=== PATIENT | male | born 1965 | race Caucasian/White ===

== ENCOUNTER 2016-10-27 04:21 | Emergency (ER) | payer OTHER ==
[2016-10-27] MEDS ORDERED: Ondansetron HCl/PF 4 MG/2 ML Vial ONE (04:49)
[2016-10-27 04:52] LABS: #Basophils 0.1 thou/uL (0.0-0.2); #Eosinphils 0.1 thou/uL (0.0-0.7); #Monocytes 0.7 thou/uL (0.11-0.59); #Neutrophils 7.1 thou/uL (1.40-6.50); %Basophils 0.7 % (0.0-1.0); %Eosinophils 0.7 % (0.0-10.0); %Lymphocytes 19.8 % (21.0-51.0); %Monocytes 6.8 % (0.0-10.0); Hematocrit 49.1 % (42.0-52.0); Mean Platelet Volume 10.4 fL (7.4-10.4); White Blood Cell (WBC) Count 9.9 thou/uL (4.8-10.8)
[2016-10-27 05:12] LABS: ALT (SGPT) 31 U/L (0-55); AST (SGOT) 22 U/L (5-34); Alkaline Phosphatase 70 U/L (40-150); Anion Gap 19 mmol/L (10-20); BUN (Urea Nitrogen) 24 mg/dL (8.9-20.6); Bilirubin, Total 0.8 mg/dL (0.2-1.2); Calc. Creatinine Clearance 0 mL/min (70-130); Calcium 9.6 mg/dL (7.8-10.44); Carbon Dioxide 20 mmol/L (22-29); Chloride 106 mmol/L (98-107); Estimated GFR-MDRD 49; Globulin 2.6 g/dL (2.4-3.5); Lipase 25 U/L (8-78); Protein, Total 7.3 g/dL (6.0-8.3)
[2016-10-27] MEDS ORDERED: niCARdipine 20MG In NaCl 20 MG/200 ML BAG IVPB SCH (06:15)
--- NOTE | 2016-10-27 08:50 | RAD ---
SINGLE VIEW OF THE CHEST: COMPARISON: None. HISTORY: Epigastric and abdominal pain. FINDINGS: Single view of the chest shows a normal sized cardiomediastinal silhouette. There is no evidence of consolidation, mass, or pleural effusion. The bones are unremarkable. IMPRESSION: No evidence of acute cardiopulmonary disease. POS: [facility]
--- NOTE | 2016-10-27 08:56 | CT ---
PRELIMINARY REPORT/[facility]/EMERGENCY AFTER HOURS PROCEDURE: EXAM: CT Abdomen and Pelvis With Intravenous Contrast. CLINICAL HISTORY: The patient is a 51 years male; Pain; Abdominal pain; Epigastric; Additional info: Epigastric pain w ith vomiting TECHNIQUE: Axial computed tomography images of the abdomen and pelvis with intravenous contrast. Coronal and sagittal reformatted images were created and reviewed. CONTRAST: 96 mL of ISOVUE 370 administered intravenously. COMPARISON: No relevant prior studies available. FINDINGS: Lower thorax: No acute findings. ABDOMEN: Liver: Few subcentimeter hepatic hypodensities are noted, too small to characterize further. Gallbladder and bile ducts: No calcified stones. No ductal dilation. Pancreas: Unremarkable. No mass. No ductal dilation. Spleen: Unremarkable. No splenomegaly. Adrenals: Unremarkable. No mass. Kidneys and ureters: 7 mm proximal left ureteral calculus at the level of L4/5 with mild proximal hy droureter though no hydronephrosis or evidence of impaired renal function. The ureter is normal janes kiana distal to the stone. There are otherwise multiple subcentimeter renal calculi bilaterally. Scattered right cortical scarring. The left kidney is slightly low lying. No renal mass. Stomach and bowel: Unremarkable. No obstruction. No mucosal thickening. Appendix: No findings to suggest acute appendicitis. PELVIS: Bladder: Unremarkable. No mass. Reproductive: Unremarkable as visualized. ABDOMEN and PELVIS: Intraperitoneal space: No free fluid or fluid collection. No free air. Bones/joints: No acute fracture. No dislocation. Soft tissues: Unremarkable. Vasculature: Infrarenal abdominal aortic aneurysm extending from the level of the FRANNIE to the distal right common iliac artery, with an apparent associated dissection (versus intramural hematoma). The aorta measures a maximum of 2.9 cm in caliber and the right common iliac artery 2.5 cm. No evidence of leak/retroperitoneal hematoma. Vessels widely patent. Lymph nodes: Unremarkable. No enlarged lymph nodes. IMPRESSION: 1. 7 mm likely partially obstructing proximal left ureteral calculus with mild proximal hydroureter but no hydronephrosis or evidence of impaired renal function. 2. Scattered bilateral nonobstructing renal calculi. 3. Mild infrarenal abdominal aortic aneurysm measuring up to 2.9 cm extending into the right common iliac artery (2.5 cm) with associated dissection. No evidence of leak/retroperitoneal hematoma. Gagan elate clinically and with any available prior exams. 4. Other chronic and incidental findings as above. Findings discussed with and acknowledged by JOSE DANIEL Cedillo at 5:[address] on 10/27/2016 with any ques tions answered. Thank you for allowing us to participate in the care of your patient. Dictated and Authenticated by: Lonny Escalnate MD 10/27/2016 5:55 AM Central Time ([place] \T\ [place]) FINAL REPORT CT ABDOMEN AND PELVIS WITH IV CONTRAST: I agree with the preliminary report given by Dr. Lonny Escalante of [facility]. POS: [facility]
[2016-10-27] MEDS ORDERED: ESMOLOL ONE (09:00)
[2016-10-27] MEDS ORDERED: NS ONE (09:00)
[2016-10-27] MEDS ORDERED: Iopamidol 370 76% 100 ML VIAL ONE (09:00)
== END 2016-10-27 06:55 | disposition short-term general hospital (02) ==
LOC: NAV ERS 04:21
DX: I71.02 Dissection of abdominal aorta (principal); N20.0 Calculus of kidney; I10 Essential (primary) hypertension; Z79.899 Other long term (current) drug therapy
CPT/HCPCS: 36415; 71010; 74177; 80053; 83690; 85025; 93005; 96374; 96375; 96376; J1170; J2405; J7070